=== PATIENT | female | born 1995 | race Two or more races ===

== ENCOUNTER 2017-06-30 21:46 | Emergency (ER) | payer MEDICAID ==
[~2017-06-30] VITALS: Ht 162.6 cm; Wt 48.0 kg
[2017-06-30 22:39] VITALS: BP 118/79
== END 2017-07-01 02:00 | disposition left against medical advice (07) ==
LOC: ER 21:46
DX: R10.9 Unspecified abdominal pain (principal); R53.1 Weakness; R11.10 Vomiting, unspecified; Z53.21 Procedure and treatment not carried out due to patient leaving prior to being seen by health care provider